=== PATIENT | female | born 1995 | race Caucasian/White ===

== ENCOUNTER 2022-09-13 10:58 | Emergency (ER) | payer MEDICAID ==
[~2022-09-13] VITALS: Ht 160 cm; Wt 99.8 kg
--- NOTE | 2022-09-13 11:34 | NUR ---
[email or web address] screening exam in progress
--- NOTE | 2022-09-13 11:58 | NUR ---
Patient discharged to home in stable condition with brisk steady gait. Written and verbal after care instructions given. Patient verbalized understanding and compliance of instructions. Stressed follow up [employer] and primary doctor or return to ER for worsening s/s.
== END 2022-09-13 11:59 | disposition home or self-care (01) ==
LOC: ER 10:58
DX: N90.7 Vulvar cyst (principal)
CPT/HCPCS: A4663